=== PATIENT | female | born 1950 | race Hispanic/Latino ===

== ENCOUNTER 2017-08-08 09:14 | Inpatient (IN) | payer MEDICARE ==
[2017-08-02 10:47] VITALS: BMI 30.1
[2017-08-08] MEDS ORDERED: Bupivacaine Liposomal Inj 20 ml INFIL ONE (11:19)
[2017-08-08] MEDS ORDERED: Lactated Ringer's 1,000 ML IV ONE ×3 (11:32→14:10)
[2017-08-08] MEDS ORDERED: ceFAZolin IV 2 gm in Dextrose 2 GM/50 ML BAG IVPB ONE (11:34)
[2017-08-08] MEDS ORDERED: Midazolam 2 MG/2 ML VIAL ONE (11:37)
[2017-08-08] MEDS ORDERED: Propofol 10 mg/ml Inj (20 ML) ONE (11:37)
[2017-08-08] MEDS ORDERED: Tranexamic Acid 100 mg/ml IVPB ONE ×2 (12:00→12:15)
[2017-08-08] MEDS: Bacitracin 150,000 UNIT in Sodium Chloride 0.9% Irrig 3,000 ML IR SCH ×2 (12:30→12:32)
[2017-08-08] MEDS ORDERED: Sodium Chloride 0.9% 40 ML IV ONE (13:06)
[2017-08-08] MEDS ORDERED: Rocuronium 10 mg/ml (10 ml) ONE (13:55)
[2017-08-08] MEDS ORDERED: Lidocaine Hydrochloride 5 ML INJ ONE (13:55)
[2017-08-08] MEDS ORDERED: Neostigmine Methylsulfate 3mg/3ml Syringe IV ONE (15:05)
[2017-08-08] MEDS ORDERED: Morphine 4 MG/ML VIAL ONE ×2 (15:13→15:21)
[2017-08-08] MEDS ORDERED: HYDROmorphone 0.5 mg/0.5 ml ISec IVP PRN (15:44)
--- NOTE | 2017-08-08 15:45 | PCM.SURG1 ---
Surgeon's Initial Post Op Note - Surgeon's Notes Surgeon: Erich Diamond MD [employer] Truck Driver: Kervin Grnaados PA-C Type of Anesthesia: General Endo Anesthesia Administered By: Dr. Ryan Pre-Operative Diagnosis: Left hip DJD Operative Findings: same Post-Operative Diagnosis: same Operation Performed: Left total hip replacement Specimen/Specimens Removed: femoral head Estimated Blood Loss: EBL {In ML}: 200 Blood Products Given: N/A Drains Used: No Drains Post-Op Condition: Fair Date of Surgery/Procedure: 08/08/17 Time of Surgery/Procedure: 15:45
--- NOTE | 2017-08-08 15:45 | CP.PCM.HP ---
History of Present Illness - History of Present Illness History of Present Illness: 67F with left hip DJD failed conservative mgmt and elected for THR No history of bleeding disorder/blood clots Present on Admission - Present on Admission Any Indicators Present on Admission: No Past Patient History - Past Medical History & Family History Past Medical History?: Yes - Past Social History Smoking Status: Never Smoked - CARDIAC Hx Cardiac Disorders: Yes Hx Hypertension: Yes - MUSCULOSKELETAL/RHEUMATOLOGICAL Hx Musculoskeletal Disorders: Yes Hx Osteoarthritis: Yes - SURGICAL HISTORY Hx Surgeries: Yes - ANESTHESIA Hx Anesthesia: Yes Hx Anesthesia Reactions: No Hx Malignant Hyperthermia: No Has any member of the family had a problem w/ anesthesia?: No Meds Allergies/Adverse Reactions: Allergies Allergy/AdvReac Type Severity Reaction Status Date / Time No Known Allergies Allergy Verified 07/12/17 13:54 Physical Exam - Constitutional Appears: Well, No Acute Distress - Respiratory Exam Respiratory Exam: NORMAL BREATHING PATTERN Additional comments: medical H&P on chart, reviewed - Expanded Lower Extremities Exam Left Hip exam: shortening ([id number]) Knee exam: full ROM, normal inspection (calves soft NT neg homans +ROM ankel/ toes, sensation intact +DP/PT pulses) Ankle exam: FULL ROM, NORMAL INSPECTION - Neurological Exam Neurological exam: Alert, Oriented x3 - Psychiatric Exam Psychiatric exam: Normal Affect, Normal Mood - Skin Skin Exam: Dry, Intact, Normal Color, Warm Results - Vital Signs Recent Vital Signs: Last Vital Signs Temp 97.4 F L 08/08/17 09:26 Pulse 89 08/08/17 09:26 Resp 20 08/08/17 09:26 BP 133/84 08/08/17 09:26 Pulse Ox 96 08/08/17 09:26 - Labs Labs: Laboratory Results - last 24 hr 08/08/17 09:58 Blood Type B POSITIVE Antibody Screen Negative Assessment & Plan - Assessment and Plan (Free Text) Assessment: left hip DJD -NPO for THR -cont home meds for HTN -pain meds -d/w Dr. Diamond, agrees with above
--- NOTE | 2017-08-08 16:04 | RAD ---
Indication: pt in pacu s/p THR Comparison: None available. Left hip with pelvis radiographs Findings: The patient is status post left hip arthroplasty. Alignment appears satisfactory. Soft tissue swelling, subcutaneous emphysema, and surgical julián compatible with recent postoperative history. Pelvic calcifications, likely phleboliths. Impression: Status post left hip arthroplasty as above.
--- NOTE | 2017-08-08 17:08 | CP.PCM.CON ---
<Jose Hayes - Last Filed: 08/08/17 17:18> History of Present Illness - History of Present Illness History of Present Illness: Medicine Consult Note for Dr. Allen Reason for Consult: Medical Management This is a 67 year old female with PMHx hypertension and left hip degenerative joint disease who presents to the hospital for an elective Left Total Hip Arthroplasty. Patient has been dealing with hip arthritis for about 4 years with conservative management, but this has worsened since about a year and a half ago. Patient is also starting to experience right hip pain recently, prompting her to treat the left one surgically. Patient complaining of soreness in the left hip at time of encounter. Patient is also lethargic coming out of anesthesia so unable to ascertain full ROS. Patient was seen in the presence of her who provided more information. PMHx: Hypertension, Hip DJD PSHx: Left AUBREY 08/08/17 Allergies: NKA Social: Former smoker 10 cigarettes daily, quit 35 years ago. Denies alcohol, drugs. Retired, used to work in the [employer]. Lives with . PMD: Dr. Herbert Home Meds: Amlodipine 10 mg PO daily, Metoprolol Succinate 50 mg PO daily Review of Systems - Review of Systems Systems not reviewed;Unavailable: Other (lethargy due to post-operative state) Past Patient History - Past Medical History & Family History Past Medical History?: Yes - Past Social History Smoking Status: Never Smoked - CARDIAC Hx Cardiac Disorders: Yes Hx Hypertension: Yes - MUSCULOSKELETAL/RHEUMATOLOGICAL Hx Musculoskeletal Disorders: Yes Hx Osteoarthritis: Yes - SURGICAL HISTORY Hx Surgeries: Yes - ANESTHESIA Hx Anesthesia: Yes Hx Anesthesia Reactions: No Hx Malignant Hyperthermia: No Has any member of the family had a problem w/ anesthesia?: No Meds Allergies/Adverse Reactions: Allergies Allergy/AdvReac Type Severity Reaction Status Date / Time No Known Allergies Allergy Verified 07/12/17 13:54 - Medications Medications: Current Medications Amlodipine Besylate (Norvasc) 10 mg PO DAILY [facility] Docusate Sodium (Colace) 100 mg PO BID [facility] Enoxaparin Sodium (Lovenox) 40 mg SC Q24H [facility] Hydromorphone HCl (Dilaudid) 0.5 mg IVP Q5M PRN PRN Reason: Pain, moderate (4-7) Stop: 08/08/17 17:44 Last Admin: 08/08/17 16:14 Dose: 0.5 mg Hydromorphone HCl (Dilaudid) 0.5 mg IVP Q4H PRN PRN Reason: Pain, severe (8-10) Cefazolin Sodium/Dextrose (Ancef Iv 2 Gm Duplex) 2 gm in 50 mls @ 100 mls/hr IVPB Q8H [facility] Stop: 08/09/17 04:29 Sodium Chloride (Sodium Chloride 0.9%) 1,000 mls @ 80 mls/hr IV .[id number] [facility] Metoprolol Succinate (Toprol Xl) 50 mg PO DAILY [facility] Ondansetron HCl (Zofran Inj) 4 mg IVP ONCE PRN PRN Reason: Nausea/Vomiting Stop: 08/08/17 17:44 Physical Exam - Constitutional Appears: No Acute Distress - Head Exam Head Exam: ATRAUMATIC, NORMOCEPHALIC - Eye Exam Eye Exam: EOMI Additional comments: Pinpoint pupils--patient is post-operative and on IV opiate medication for pain - ENT Exam ENT Exam: Mucous Membranes Moist - Respiratory Exam Respiratory Exam: Decreased Breath Sounds, NORMAL BREATHING PATTERN. absent: Rales, Rhonchi, Wheezes - Cardiovascular Exam Cardiovascular Exam: REGULAR RHYTHM, +S1, +S2. absent: Diastolic murmur, Systolic Murmur - GI/Abdominal Exam GI & Abdominal Exam: Diminished Bowel Sounds, Soft. absent: Distended, Guarding , Tenderness - Extremities Exam Extremities exam: Positive for: pedal pulses present. Negative for: pedal edema Additional comments: Wedge pillow between lower extremities SCDs in place Dressings on left hip clean, dry, intact - Neurological Exam Neurological exam: Alert, CN II-XII Intact, Oriented x3 - Psychiatric Exam Psychiatric exam: Normal Affect, Normal Mood - Skin Skin Exam: Dry, Warm Results - Vital Signs Recent Vital Signs: Last Vital Signs Temp 97.7 F 08/08/17 15:56 Pulse 57 L 08/08/17 16:26 Resp 15 08/08/17 16:26 BP 118/71 08/08/17 16:26 Pulse Ox 99 08/08/17 16:26 - Labs Labs: Laboratory Results - last 24 hr 08/08/17 09:58 Blood Type B POSITIVE Antibody Screen Negative Assessment & Plan - Assessment and Plan (Free Text) Plan: Left Total Hip Arthroplasty Management per Orthopedics Patient sleeping with wedge pillow Standard Hip Precautions Pain management per orthopedics-Dilaudid 0.5 mg IV Q4 prn History of Hypertension Continue Home Med Amlodipine 10 mg PO daily Continue Home Med Metoprolol Succinate 50 mg PO daily Monitor BP Prophylactic Measure DVT prophylaxis per ortho: Lovenox 40 mg SC daily to begin tomorrow in the afternoon SCDs Protonix 40 mg PO daily Colace 100 mg PO BID Heart Healthy Diet Case DW Dr. Alejandro Hayes PGY-1 <Jacinta Allen - Last Filed: 08/10/17 19:55> Meds - Medications Medications: Current Medications Amlodipine Besylate (Norvasc) 10 mg PO DAILY [facility] Last Admin: 08/10/17 09:12 Dose: 10 mg Docusate Sodium (Colace) 100 mg PO BID [facility] Last Admin: 08/10/17 19:17 Dose: 100 mg Enoxaparin Sodium (Lovenox) 40 mg SC Q24H [facility] Last Admin: 08/10/17 14:21 Dose: 40 mg Hydromorphone HCl (Dilaudid) 0.5 mg IVP Q4H PRN PRN Reason: Pain, severe (8-10) Last Admin: 08/10/17 19:29 Dose: 0.5 mg Metoprolol Succinate (Toprol Xl) 50 mg PO DAILY [facility] Last Admin: 08/10/17 09:12 Dose: 50 mg Results - Vital Signs Recent Vital Signs: Last Vital Signs Temp 98.0 F 08/10/17 07:33 Pulse 86 08/10/17 09:12 Resp 20 08/10/17 07:33 BP 111/72 08/10/17 09:12 Pulse Ox 93 L 08/10/17 07:33 - Labs Result Diagrams: 08/10/17 08:38 08/10/17 08:38 Labs: Laboratory Results - last 24 hr 08/10/17 08/10/17 08:38 08:38 WBC 10.8 RBC 3.69 L Hgb 10.6 L Hct 30.8 L MCV 83.6 MCH 28.8 MCHC 34.4 RDW 12.9 Plt Count 224 MPV 9.8 Sodium 132 Potassium 3.5 L Chloride 98 Carbon Dioxide 29 Anion Gap 9 L BUN 10 Creatinine 0.5 L Est GFR ( Amer) > 60 Est GFR (Non-Af Amer) > 60 Random Glucose 114 H Calcium 8.2 L Attending/Attestation - Attestation I have personally seen and examined this patient.: Yes I have fully participated in the care of the patient.: Yes I have reviewed all pertinent clinical information: Yes
[2017-08-08] MEDS: Sodium Chloride 0.9% 1,000 ML IV SCH (17:25)
--- NOTE | 2017-08-08 19:25 | OP ---
PROCEDURE DATE: 08/08/2017 PREOPERATIVE DIAGNOSES: Left hip arthritis and limb length discrepancy. POSTOPERATIVE DIAGNOSES: Left hip arthritis and limb length discrepancy. PROCEDURE: Left total hip arthroplasty. SURGEON: Jesse Diamond MD. HARDENING MACHINE OPERATOR: Dr. Diamond was assisted by Patricio Morley PA-C and a third year medical student. Ms. Morley was scrubbed and present throughout the entire case and assisted in the patient positioning, retraction, reduction of the prosthesis as well as wound closure. TYPE OF ANESTHESIA: General. COMPLICATIONS: None. ESTIMATED BLOOD LOSS: 200 mL. IMPLANT: Biomet dual mobility total hip. INDICATIONS FOR PROCEDURE: This is a 67-year-old female who presented with complaints of longstanding left hip pain. Clinical examination was significant with pain with passive internal and external rotation, pain with resisted hip flexion and the left lower extremity shorter than the right. Radiographic examination was consistent with advanced degenerative joint disease of the left hip. After a period of failed nonsurgical management, recommendations were for a left total hip arthroplasty. The risks, benefits and alternatives of the procedure were discussed with the patient and informed consent was obtained. DESCRIPTION OF PROCEDURE: After the surgical site was finally verified in the preoperative holding area, the patient was taken to the operating room and placed supine on the operating room table. After administration of general anesthesia, Calix catheter was inserted. Patient received 2 g of Ancef IV. Patient was positioned in the lateral decubitus position with the left hip up towards the ceiling. Care was taken to make sure all bony prominences and nerves were well padded and protected. Axillary roll was placed in the right axilla and VA9 boot was placed on the right lower extremity and the left lower extremity was prepped and draped in the usual sterile fashion. Bony landmarks were identified and approximately 10 cm curvilinear incision was made above the proximal femur. Soft tissues were dissected sharply down to the fascia. The fascia was incised and a Charnley retractor was placed. Short external rotators were identified, tagged and resected off of the proximal femur. T-type capsulotomy was performed and the hip was dislocated. Based on a preoperative template, our femoral neck resection was performed. Next, an anterior capsulotomy was performed and the acetabulum was exposed. Acetabulum was then reamed sequentially to allow for a 52 mm Press-Fit cup. Care was taken to maintain proper acetabular height and version. A trial cup was inserted and satisfied. The trial was removed and hip was pulse lavaged with antibiotic saline solution. The bony surfaces were dried and the actual cup was then impacted into place again making sure to maintain proper height and version. The cup was fixed using two screws for further fixation. At this point, our attention directed to the femur. The medullary canal of the proximal femur was reamed and broached sequentially to allow for 40 mm Press-Fit stem. Again care was taken to maintain proper version. With the trial stem in place, the calcar was put in and the trial neck and head was placed. The hip was reduced, was taken through range of motion, was noted to have approximately equal limb length and stable. At this point, the hip was dislocated and the trial cup was removed. The hip was once again pulse lavaged and the actual stem was then impacted into place. The head was impacted over the neck and the hip was reduced. Again the hip was noted to be stable with approximately equal limb length. At this point, our capsule was closed using #1 Vicryl suture, the short external rotators were closed using #1 Vicryl suture, the deep fascia was closed using #1 Vicryl suture, the subcutaneous tissue was closed using 0 Vicryl and 2-0 Vicryl suture and the skin was closed using julián. Sterile dressing was applied and an abduction pillow was placed. Patient was transferred supine, awakened and taken to recovery room in stable condition. Jesse Diamond MD
[2017-08-08] MEDS: ceFAZolin IV 2 gm in Dextrose 2 GM/50 ML BAG IVPB SCH (22:10)
[2017-08-09] MEDS: ceFAZolin IV 2 gm in Dextrose 2 GM/50 ML BAG IVPB SCH (03:59)
[2017-08-09] MEDS: Sodium Chloride 0.9% 1,000 ML IV SCH (04:03)
[2017-08-09 06:40] LABS: HEMOGLOBIN 10.7 g/dL (11.0-16.0); MEAN CELL VOLUME 83.7 fL (81.0-99.0); MEAN CORPUSCULAR HEMOGLOBIN 28.2 pg (27.0-31.0); MEAN CORPUSCULAR HGB CONC 33.7 g/dL (33.0-37.0); MEAN PLATELET VOLUME 9.4 fL (7.2-11.7); RBC 3.8 Mil/uL (3.80-5.20); RED CELL DISTRIBUTION WIDTH 13.1 % (11.5-14.5); WHITE BLOOD COUNT 14.1 K/uL (4.8-10.8)
--- NOTE | 2017-08-09 07:23 | CP.PCM.PN ---
Subjective - Date & Time of Evaluation Date of Evaluation: 08/09/17 Time of Evaluation: 09:10 - Subjective Subjective: Medicine progress note for Dr. Allen Patient seen and examined at bedside. Patient has no acute complaints. Patient has not had gas or bowel movement as of early this morning. Left hip pain is tolerable at the moment. Patient is waiting for physical therapy before requesting for pain medication. Objective - Vital Signs/Intake and Output Vital Signs (last 24 hours): Temp Pulse Resp BP Pulse Ox 98 F 72 20 132/74 97 08/09/17 04:05 08/09/17 04:05 08/09/17 04:05 08/09/17 04:05 08/09/17 04:05 Intake and Output: 08/09/17 08/09/17 06:59 18:59 Intake Total 1400 Output Total 600 Balance 800 - Medications Medications: Current Medications Amlodipine Besylate (Norvasc) 10 mg PO DAILY [facility] Docusate Sodium (Colace) 100 mg PO BID [facility] Last Admin: 08/08/17 18:41 Dose: Not Given Enoxaparin Sodium (Lovenox) 40 mg SC Q24H [facility] Hydromorphone HCl (Dilaudid) 0.5 mg IVP Q4H PRN PRN Reason: Pain, severe (8-10) Last Admin: 08/08/17 22:20 Dose: 0.5 mg Sodium Chloride (Sodium Chloride 0.9%) 1,000 mls @ 80 mls/hr IV .[id number] [facility] Last Admin: 08/09/17 04:03 Dose: 80 mls/hr Metoprolol Succinate (Toprol Xl) 50 mg PO DAILY [facility] - Labs Labs: 08/09/17 06:20 - Constitutional Appears: No Acute Distress - Head Exam Head Exam: ATRAUMATIC, NORMOCEPHALIC - Eye Exam Eye Exam: EOMI, PERRL - ENT Exam ENT Exam: Mucous Membranes Moist - Respiratory Exam Respiratory Exam: Clear to Ausculation Bilateral, NORMAL BREATHING PATTERN. absent: Rales, Rhonchi, Wheezes - Cardiovascular Exam Cardiovascular Exam: REGULAR RHYTHM, +S1, +S2 - GI/Abdominal Exam GI & Abdominal Exam: Soft, Normal Bowel Sounds. absent: Distended, Guarding, Tenderness - Extremities Exam Extremities Exam: absent: Pedal Edema Additional comments: Wedge pillow between lower extremities SCDs in place Dressings on left hip clean, dry, intact - Neurological Exam Neurological Exam: Alert, Awake, Oriented x3 - Psychiatric Exam Psychiatric exam: Normal Affect, Normal Mood - Skin Skin Exam: Dry, Warm Assessment and Plan - Assessment and Plan (Free Text) Plan: Left Total Hip Arthroplasty Management per Orthopedics Patient sleeping with wedge pillow Standard Hip Precautions Pain management per orthopedics-Dilaudid 0.5 mg IV Q4 prn Initially was retaining urine despite non-distended belly, but has now voided 500 cc of urine History of Hypertension Continue Home Med Amlodipine 10 mg PO daily Continue Home Med Metoprolol Succinate 50 mg PO daily Monitor BP Prophylactic Measure DVT prophylaxis per ortho: Lovenox 40 mg SC daily to begin tomorrow in the afternoon SCDs Protonix 40 mg PO daily Colace 100 mg PO BID Heart Healthy Diet Discharge planning initiated per orthopedics Case DW Dr. Alejandro Hayes PGY-1
[2017-08-09 07:32] LABS: BLOOD UREA NITROGEN 12 mg/dL (7-17); CALCIUM 8.3 mg/dl (8.6-10.4); GFR AFRICAN-AMERICAN > 60; GFR NON-AFRICAN AMERICAN > 60
[2017-08-09] MEDS: Metoprolol Succinate 50 mg XL Tab PO SCH (09:09)
[2017-08-09] MEDS: Enoxaparin 40 mg Syringe SC SCH (14:47)
--- NOTE | 2017-08-09 15:34 | CP.PCM.PN ---
Subjective - Date & Time of Evaluation Date of Evaluation: 08/09/17 Time of Evaluation: 15:31 - Subjective Subjective: Patient states she feels stiff from sitting in the chair for a few hours. Denies CP/SOB/dizziness. Objective - Vital Signs/Intake and Output Vital Signs (last 24 hours): Temp Pulse Resp BP Pulse Ox 98.8 F 80 16 118/73 98 08/09/17 14:00 08/09/17 14:00 08/09/17 14:00 08/09/17 14:00 08/09/17 14:00 Intake and Output: 08/09/17 08/09/17 06:59 18:59 Intake Total 1400 Output Total 600 Balance 800 - Medications Medications: Current Medications Amlodipine Besylate (Norvasc) 10 mg PO DAILY [facility] Last Admin: 08/09/17 09:09 Dose: 10 mg Docusate Sodium (Colace) 100 mg PO BID [facility] Last Admin: 08/09/17 09:09 Dose: 100 mg Enoxaparin Sodium (Lovenox) 40 mg SC Q24H [facility] Last Admin: 08/09/17 14:47 Dose: 40 mg Hydromorphone HCl (Dilaudid) 0.5 mg IVP Q4H PRN PRN Reason: Pain, severe (8-10) Last Admin: 08/09/17 14:46 Dose: 0.5 mg Metoprolol Succinate (Toprol Xl) 50 mg PO DAILY [facility] Last Admin: 08/09/17 09:09 Dose: 50 mg - Labs Labs: 08/09/17 06:20 08/09/17 06:20 - Extremities Exam Additional comments: LLE: +rom ankle/toes, sensation intact, calves soft NT neg homasn +abduction pillow +DP pulse dressing intact, no visible drainage Assessment and Plan (1) Primary osteoarthritis of left hip Assessment & Plan: POD#1 s/p THR d/c planning VTE proph PT/OT labs in am pain control d/w Dr. Diamond, agrees with above Status: Acute (2) HTN (hypertension) Status: Acute (3) Acute blood loss anemia Assessment & Plan: hemodynamically stable monitor Status: Acute
--- NOTE | 2017-08-10 06:51 | CP.PCM.PN ---
<Jose Hayes - Last Filed: 08/10/17 16:12> Subjective - Date & Time of Evaluation Date of Evaluation: 08/10/17 Time of Evaluation: 07:00 - Subjective Subjective: Medicine progress note for Dr. Allen Patient seen and examined at bedside. Patient is passing gas but has not had a bowel movement yet as of this morning. Patient complaining of left hip pain. Objective - Vital Signs/Intake and Output Vital Signs (last 24 hours): Temp Pulse Resp BP Pulse Ox 98.1 F 81 20 135/75 95 08/10/17 04:55 08/10/17 04:55 08/10/17 04:55 08/10/17 04:55 08/10/17 04:55 Intake and Output: 08/09/17 08/10/17 18:59 06:59 Intake Total 1040 Output Total 650 Balance 390 - Medications Medications: Current Medications Amlodipine Besylate (Norvasc) 10 mg PO DAILY [facility] Last Admin: 08/09/17 09:09 Dose: 10 mg Docusate Sodium (Colace) 100 mg PO BID [facility] Last Admin: 08/09/17 19:03 Dose: Not Given Enoxaparin Sodium (Lovenox) 40 mg SC Q24H [facility] Last Admin: 08/09/17 14:47 Dose: 40 mg Hydromorphone HCl (Dilaudid) 0.5 mg IVP Q4H PRN PRN Reason: Pain, severe (8-10) Last Admin: 08/10/17 05:03 Dose: 0.5 mg Metoprolol Succinate (Toprol Xl) 50 mg PO DAILY [facility] Last Admin: 08/09/17 09:09 Dose: 50 mg - Labs Labs: 08/09/17 06:20 08/09/17 06:20 - Constitutional Appears: No Acute Distress - Head Exam Head Exam: ATRAUMATIC, NORMOCEPHALIC - Eye Exam Eye Exam: EOMI, Normal appearance - ENT Exam ENT Exam: Mucous Membranes Moist - Respiratory Exam Respiratory Exam: Clear to Ausculation Bilateral. absent: Rales, Rhonchi, Wheezes - Cardiovascular Exam Cardiovascular Exam: REGULAR RHYTHM, +S1, +S2 - GI/Abdominal Exam GI & Abdominal Exam: Soft, Normal Bowel Sounds. absent: Distended, Tenderness - Extremities Exam Extremities Exam: absent: Pedal Edema - Back Exam Additional comments: SCDs in place Dressings on left hip clean, dry, intact - Neurological Exam Neurological Exam: Alert, Awake, Oriented x3 - Psychiatric Exam Psychiatric exam: Normal Affect, Normal Mood - Skin Skin Exam: Dry, Warm Assessment and Plan - Assessment and Plan (Free Text) Plan: Left Total Hip Arthroplasty Management per Orthopedics Patient sleeping with wedge pillow Standard Hip Precautions Pain management per orthopedics-Dilaudid 0.5 mg IV Q4 prn History of Hypertension Continue Home Med Amlodipine 10 mg PO daily Continue Home Med Metoprolol Succinate 50 mg PO daily Monitor BP Prophylactic Measure DVT prophylaxis per ortho: Lovenox 40 mg SC daily SCDs Protonix 40 mg PO daily Colace 100 mg PO BID Heart Healthy Diet Discharge planning initiated--patient for TCU tomorrow Disposition: Medicine team signing off on this patient. Please re-consult if necessary. Case DW Dr. Alejandro Hayes PGY-1 <Jacinta Allen - Last Filed: 08/10/17 19:58> Objective - Vital Signs/Intake and Output Vital Signs (last 24 hours): Temp Pulse Resp BP Pulse Ox 98.0 F 86 20 111/72 93 L 08/10/17 07:33 08/10/17 09:12 08/10/17 07:33 08/10/17 09:12 08/10/17 07:33 Intake and Output: 08/10/17 08/11/17 18:59 06:59 Intake Total 500 Output Total 600 Balance -100 - Medications Medications: Current Medications Amlodipine Besylate (Norvasc) 10 mg PO DAILY [facility] Last Admin: 08/10/17 09:12 Dose: 10 mg Docusate Sodium (Colace) 100 mg PO BID [facility] Last Admin: 08/10/17 19:17 Dose: 100 mg Enoxaparin Sodium (Lovenox) 40 mg SC Q24H [facility] Last Admin: 08/10/17 14:21 Dose: 40 mg Hydromorphone HCl (Dilaudid) 0.5 mg IVP Q4H PRN PRN Reason: Pain, severe (8-10) Last Admin: 08/10/17 19:29 Dose: 0.5 mg Metoprolol Succinate (Toprol Xl) 50 mg PO DAILY [facility] Last Admin: 08/10/17 09:12 Dose: 50 mg - Labs Labs: 08/10/17 08:38 08/10/17 08:38
[2017-08-10 08:48] LABS: HEMOGLOBIN 10.6 g/dL (11.0-16.0); MEAN CELL VOLUME 83.6 fL (81.0-99.0); MEAN CORPUSCULAR HEMOGLOBIN 28.8 pg (27.0-31.0); MEAN CORPUSCULAR HGB CONC 34.4 g/dL (33.0-37.0); MEAN PLATELET VOLUME 9.8 fL (7.2-11.7); RBC 3.69 Mil/uL (3.80-5.20); RED CELL DISTRIBUTION WIDTH 12.9 % (11.5-14.5); WHITE BLOOD COUNT 10.8 K/uL (4.8-10.8)
[2017-08-10 09:04] LABS: BLOOD UREA NITROGEN 10 mg/dL (7-17); CALCIUM 8.2 mg/dl (8.6-10.4); GFR AFRICAN-AMERICAN > 60; GFR NON-AFRICAN AMERICAN > 60
[2017-08-10] MEDS: Metoprolol Succinate 50 mg XL Tab PO SCH (09:12)
[2017-08-10] MEDS ORDERED: Potassium Chloride 20 mEq ER Tab PO ONE (11:00)
[2017-08-10] MEDS: Enoxaparin 40 mg Syringe SC SCH (14:21)
--- NOTE | 2017-08-10 15:28 | CP.PCM.PN ---
Subjective - Date & Time of Evaluation Date of Evaluation: 08/10/17 Time of Evaluation: 15:26 - Subjective Subjective: Patient states she was able to walk a lot more today. Pain is better, controlled with pain medication. Denies CP?SOb/dizziness. Objective - Vital Signs/Intake and Output Vital Signs (last 24 hours): Temp Pulse Resp BP Pulse Ox 98.0 F 86 20 111/72 93 L 08/10/17 07:33 08/10/17 09:12 08/10/17 07:33 08/10/17 09:12 08/10/17 07:33 Intake and Output: 08/10/17 08/10/17 06:59 18:59 Intake Total 500 Output Total 600 Balance -100 - Medications Medications: Current Medications Amlodipine Besylate (Norvasc) 10 mg PO DAILY [facility] Last Admin: 08/10/17 09:12 Dose: 10 mg Docusate Sodium (Colace) 100 mg PO BID [facility] Last Admin: 08/10/17 09:12 Dose: 100 mg Enoxaparin Sodium (Lovenox) 40 mg SC Q24H [facility] Last Admin: 08/10/17 14:21 Dose: 40 mg Hydromorphone HCl (Dilaudid) 0.5 mg IVP Q4H PRN PRN Reason: Pain, severe (8-10) Last Admin: 08/10/17 09:12 Dose: 0.5 mg Metoprolol Succinate (Toprol Xl) 50 mg PO DAILY [facility] Last Admin: 08/10/17 09:12 Dose: 50 mg - Labs Labs: 08/10/17 08:38 08/10/17 08:38 - Extremities Exam Additional comments: +ROM ankle/toes, sensation intact Dressing changed, incision intact, dry, no erythema calves soft NT neg homans Assessment and Plan (1) Primary osteoarthritis of left hip Assessment & Plan: POD#2 s/p left THR d/c planning to TCU tomorrow f/u labs VTE proph PT/OT d/w Dr. garcia, agrees with above Status: Acute (2) HTN (hypertension) Status: Acute (3) Acute blood loss anemia Status: Acute
[2017-08-11 07:05] LABS: HEMOGLOBIN 10.3 g/dL (11.0-16.0); MEAN CELL VOLUME 83.9 fL (81.0-99.0); MEAN CORPUSCULAR HEMOGLOBIN 28.8 pg (27.0-31.0); MEAN CORPUSCULAR HGB CONC 34.4 g/dL (33.0-37.0); RBC 3.59 Mil/uL (3.80-5.20)
[2017-08-11 07:14] LABS: BLOOD UREA NITROGEN 8 mg/dL (7-17); CALCIUM 8.2 mg/dl (8.6-10.4); GFR AFRICAN-AMERICAN > 60; GFR NON-AFRICAN AMERICAN > 60
[2017-08-11 08:12] VITALS: RESP 20
[2017-08-11] MEDS: Metoprolol Succinate 50 mg XL Tab PO SCH (09:39)
--- NOTE | 2017-08-11 13:23 | CP.PCM.PN ---
Subjective - Date & Time of Evaluation Date of Evaluation: 08/11/17 Time of Evaluation: 13:21 - Subjective Subjective: Pt awake, alert. Afebrile, VSS L hip: dressing changed incision clean and dry no cellulitis, no drainage NVI distally Hg 10.3 POD#3 Stable for d/c to rehab today. f/u 2/ in office cont Lovenox Objective - Vital Signs/Intake and Output Vital Signs (last 24 hours): Temp Pulse Resp BP Pulse Ox 98.2 F 85 20 112/74 92 L 08/11/17 07:00 08/11/17 09:40 08/11/17 09:40 08/11/17 09:40 08/11/17 09:40 - Medications Medications: Current Medications Amlodipine Besylate (Norvasc) 10 mg PO DAILY [facility] Last Admin: 08/11/17 09:39 Dose: 10 mg Docusate Sodium (Colace) 100 mg PO BID [facility] Last Admin: 08/11/17 09:39 Dose: 100 mg Enoxaparin Sodium (Lovenox) 40 mg SC Q24H [facility] Last Admin: 08/10/17 14:21 Dose: 40 mg Hydromorphone HCl (Dilaudid) 0.5 mg IVP Q4H PRN PRN Reason: Pain, severe (8-10) Last Admin: 08/11/17 05:49 Dose: 0.5 mg Metoprolol Succinate (Toprol Xl) 50 mg PO DAILY [facility] Last Admin: 08/11/17 09:39 Dose: 50 mg - Labs Labs: 08/11/17 06:45 08/11/17 06:45
[2017-08-11] MEDS: Enoxaparin 40 mg Syringe SC SCH (14:07)
--- NOTE | 2017-08-11 14:48 | CP.PCM.DIS ---
Provider - Provider Date of Admission: 08/08/17 09:14 Attending physician: Jesse Diamond MD Diagnosis - Discharge Diagnosis (1) Primary osteoarthritis of left hip Status: Acute (2) HTN (hypertension) Status: Acute (3) Acute blood loss anemia Status: Acute Hospital Course - Lab Results Lab Results: Most Recent Lab Values WBC 9.0 K/uL (4.8-10.8) 08/11/17 06:45 RBC 3.59 Mil/uL (3.80-5.20) L 08/11/17 06:45 Hgb 10.3 g/dL (11.0-16.0) L 08/11/17 06:45 Hct 30.1 % (34.0-47.0) L 08/11/17 06:45 MCV 83.9 fL (81.0-99.0) 08/11/17 06:45 MCH 28.8 pg (27.0-31.0) 08/11/17 06:45 MCHC 34.4 g/dL (33.0-37.0) 08/11/17 06:45 RDW 13.0 % (11.5-14.5) 08/11/17 06:45 Plt Count 216 K/uL (130-400) 08/11/17 06:45 MPV 9.0 fL (7.2-11.7) 08/11/17 06:45 Sodium 132 mmol/L (132-148) 08/11/17 06:45 Potassium 3.8 mmol/L (3.6-5.2) 08/11/17 06:45 Chloride 99 mmol/L (98-107) 08/11/17 06:45 Carbon Dioxide 28 mmol/L (22-30) 08/11/17 06:45 Anion Gap 9 (10-20) L 08/11/17 06:45 BUN 8 mg/dL (7-17) 08/11/17 06:45 Creatinine 0.5 mg/dL (0.7-1.2) L 08/11/17 06:45 Est GFR ( Amer) > 60 08/11/17 06:45 Est GFR (Non-Af Amer) > 60 08/11/17 06:45 Random Glucose 118 mg/dL (65-105) H 08/11/17 06:45 Calcium 8.2 mg/dl (8.6-10.4) L 08/11/17 06:45 Blood Type B POSITIVE 08/08/17 09:58 Antibody Screen Negative 08/08/17 09:58 Discharge Exam - Head Exam Head Exam: ATRAUMATIC, NORMOCEPHALIC Discharge Plan - Follow Up Plan Condition: GOOD Disposition: REHAB FACILITY/REHAB UNIT Referrals: Jesse Diamond MD [Staff Provider] - 08/24/17 (dressing change left hip daily posterior hip precautions hip abduction pillow in bed f/u 08/24 call for appt)
[2017-08-11 16:13] VITALS: BP 106/68; PULSE 91; O2SAT 96
[2017-08-11 17:04] VITALS: TEMP 98.5
== END 2017-08-11 19:07 | DRG 470 ==
LOC: C.9S 09:14 → C.6T 17:59
PROVIDERS: ADMIT Orthopaedic Surgery; ATTEND Orthopaedic Surgery
PROC: 0SRB0JA Replacement of Left Hip Joint with Synthetic Substitute, Uncemented, Open Approach (ICD-10-PCS; principal; 2017-08-08 11:32)
DX: M16.12 Unilateral primary osteoarthritis, left hip (principal); D62 Acute posthemorrhagic anemia; I10 Essential (primary) hypertension; M21.752 Unequal limb length (acquired), left femur; Z87.891 Personal history of nicotine dependence